=== PATIENT | female | born 2000 | race Caucasian/White ===

== ENCOUNTER 2023-12-10 16:30 | Outpatient (CLI) | payer OTHER ==
[2023-12-10] MEDS ORDERED: SYNTHROID200 MCG (17:15)
[2023-12-10] MEDS ORDERED: RINGERS SOLUTION,LACTATED 1,000 ML IV SCH (17:15)
[2023-12-10 17:34] LABS: HEMATOCRIT 33.5 % (36.0-45.00); HEMOGLOBIN 11.7 g/dL (12.0-15.00); MEAN CELL VOLUME 84.1 fL (80.00-100.00); MEAN CORPUSCULAR HEMOGLOBIN 29.4 pg (27.00-32.0); PLATELET COUNT 244 K/uL (150-450); RED BLOOD COUNT 3.98 M/uL (4.00-6.00); RED CELL DISTRIBUTION WIDTH 14.8 % (11.5-14.5)
[2023-12-10 17:35] LABS: PH,URINE 5.5 (5.0-8.0); URINE APPEARANCE Turbid; URINE BACTERIA 8565.4 uL (0.0-1933); URINE BILIRRUBIN Negative (NEGATIVE); URINE BLOOD Small; URINE COLOR Yellow; URINE LEUKOCYTE Large; URINE NITRATE Negative; URINE PROTEIN Negative (NEGATIVE); URINE UROBILINOGEN 0.2 E.U./dl; URINE WBC 1293.8 uL (0.0-23.2)
[2023-12-10 18:00] LABS: ALBUMIN 2.7 gm/dL (3.4-5.0); BILIRUBIN TOTAL 0.29 mg/dL (0.3-1.2); CALCIUM 9.4 mg/dL (8.5-10.1); CREATININE SERUM 0.56 mg/dL (0.55-1.02); GFR 131.9; GLOBULINA 3.8 G/DL (2.4-3.5); POTASSIUM 3.46 mEq/L (3.5-5.1); TOTAL PROTEIN 6.5 gm/dL (6.4-8.2)
[2023-12-10 18:02] LABS: URINE EPITHELIAL CELLS > 201.7 uL (0.0-38.8); URINE GLUCOSE 250 MG/DL (NEGATIVE); URINE RBC 0.7 uL (0.0-20.8)
[2023-12-10 18:11] LABS: URIC ACID 3.2 mg/dL (2.5-7.5)
[2023-12-11] MEDS ORDERED: LEVOTHYROXINE SODIUM 200 MCG TABLET PO SCH (06:00)
[2023-12-11 18:12] LABS: CREATININE URINE 48.6 MG/DL; URINE PROT QUANT 24HR 5.2 MG/DL
[2023-12-11 18:21] LABS: URINE PROT QUANT 24 HR 153.4 MG/24HR (42-225)
== END 2023-12-11 19:15 | disposition home or self-care (01) ==
LOC: OBS/DEL 16:30
PROVIDERS: ATTEND General Practice
DX: O16.2 Unspecified maternal hypertension, second trimester (principal); Z3A.21 21 weeks gestation of pregnancy

== ENCOUNTER 2024-01-15 17:15 | Outpatient (CLI) | payer OTHER ==
[~2024-01-15 17:15] MED LIST: SYNTHROID200 MCG
[2024-01-15] MEDS ORDERED: RINGERS SOLUTION,LACTATED 1,000 ML IV SCH (18:15)
[2024-01-15 19:04] LABS: URINE BILIRRUBIN Negative (NEGATIVE); URINE BLOOD Negative; URINE COLOR Yellow; URINE GLUCOSE Negative (NEGATIVE); URINE KETONE Negative (NEGATIVE); URINE LEUKOCYTE Trace; URINE NITRATE Negative; URINE PROTEIN Negative (NEGATIVE); URINE UROBILINOGEN 0.2 E.U./dl
[2024-01-15 19:07] LABS: URINE BACTERIA 118.4 uL (0.0-1933); URINE EPITHELIAL CELLS 3.5 uL (0.0-38.8); URINE WBC 2.9 uL (0.0-23.2)
[2024-01-15 19:09] LABS: HEMATOCRIT 32.7 % (36.0-45.00); HEMOGLOBIN 11.1 g/dL (12.0-15.00); MEAN CELL VOLUME 84.3 fL (80.00-100.00); MEAN CORPUSCULAR HEMOGLOBIN 28.6 pg (27.00-32.0); MEAN CORPUSCULAR HGB CONC 33.9 g/dl (32.0-36.0); PLATELET COUNT 233 K/uL (150-450); RED BLOOD COUNT 3.88 M/uL (4.00-6.00); RED CELL DISTRIBUTION WIDTH 16.2 % (11.5-14.5)
[2024-01-15 19:10] LABS: URINE RBC 0.9 uL (0.0-20.8)
[2024-01-15 19:11] LABS: URINE APPEARANCE CLEAR
== END 2024-01-16 13:21 | disposition home or self-care (01) ==
LOC: OBS/DEL 17:15
PROVIDERS: ATTEND General Practice
DX: O60.00 Preterm labor without delivery, unspecified trimester (principal); Z3A.26 26 weeks gestation of pregnancy

== ENCOUNTER → 2024-03-13 15:35 | Outpatient (CLI) | payer OTHER | END | disposition home or self-care (01) | LOC: PRENATAL 15:35 | PROVIDERS: ATTEND Obstetrics & Gynecology Maternal & Fetal Medicine | DX: O26.849 Uterine size-date discrepancy, unspecified trimester (principal); O36.8199 Decreased fetal movements, unspecified trimester, other fetus; O10.019 Pre-existing essential hypertension complicating pregnancy, unspecified trimester; O99.280 Endocrine, nutritional and metabolic diseases complicating pregnancy, unspecified trimester; O99.210 Obesity complicating pregnancy, unspecified trimester; Z3A.34 34 weeks gestation of pregnancy ==

== ENCOUNTER 2024-03-17 10:50 | Outpatient (CLI) | payer OTHER | END 2024-03-17 10:52 | disposition home or self-care (01) | LOC: PRENATAL 10:50 → NST 10:50 → PRENATAL 10:52 | PROVIDERS: ATTEND Obstetrics & Gynecology Maternal & Fetal Medicine | DX: Z34.83 Encounter for supervision of other normal pregnancy, third trimester (principal) ==

== ENCOUNTER 2024-03-26 13:15 | Inpatient (IN) | payer OTHER ==
[~2024-03-26] VITALS: Ht 165.1 cm; Wt 95.7 kg
[2024-03-26 13:32] LABS: HEMOGLOBIN 12.3 g/dL (12.0-15.00); MEAN CELL VOLUME 81.9 fL (80.00-100.00); MEAN CORPUSCULAR HEMOGLOBIN 28.1 pg (27.00-32.0); MEAN CORPUSCULAR HGB CONC 34.3 g/dl (32.0-36.0); PLATELET COUNT 222 K/uL (150-450); RED BLOOD COUNT 4.39 M/uL (4.00-6.00); RED CELL DISTRIBUTION WIDTH 16.3 % (11.5-14.5)
[2024-03-26 13:33] LABS: URINE APPEARANCE Clear; URINE BILIRRUBIN Negative (NEGATIVE); URINE BLOOD Negative; URINE COLOR Yellow; URINE KETONE Negative (NEGATIVE); URINE LEUKOCYTE Large; URINE NITRATE Negative; URINE PROTEIN Negative (NEGATIVE); URINE UROBILINOGEN 0.2 E.U./dl
[2024-03-26 13:34] LABS: URINE BACTERIA 2393.8 uL (0.0-1933); URINE EPITHELIAL CELLS 32.3 uL (0.0-38.8); URINE WBC 209.9 uL (0.0-23.2)
[2024-03-26 13:37] LABS: URINE GLUCOSE 250 MG/DL (NEGATIVE); URINE RBC 1.3 uL (0.0-20.8)
[2024-03-26 13:56] LABS: INR 0.94; PARTIAL THROMBOPLASTIN TIME 25.7 SECONDS (22.0-34.0); PROTHROMBIN TIME 10.3 SECONDS (9.0-11.5)
[2024-03-26 14:38] LABS: ALBUMIN 2.7 gm/dL (3.4-5.0); BILIRUBIN TOTAL 0.34 mg/dL (0.3-1.2); CALCIUM 8.8 mg/dL (8.5-10.1); CREATININE SERUM 0.62 mg/dL (0.55-1.02); GFR 117.28; GLOBULINA 3.7 G/DL (2.4-3.5); POTASSIUM 4.06 mEq/L (3.5-5.1); TOTAL PROTEIN 6.4 gm/dL (6.4-8.2)
[2024-04-06 08:44] VITALS: BP 120/71
[2024-04-06 09:23] LABS: URINE APPEARANCE Clear; URINE BILIRRUBIN Negative (NEGATIVE); URINE BLOOD Negative; URINE COLOR Yellow; URINE KETONE Trace (NEGATIVE); URINE LEUKOCYTE Large; URINE NITRATE Negative; URINE PROTEIN Negative (NEGATIVE)
[2024-04-06 09:24] LABS: HEMATOCRIT 34.8 % (36.0-45.00); HEMOGLOBIN 11.9 g/dL (12.0-15.00); MEAN CELL VOLUME 82.5 fL (80.00-100.00); MEAN CORPUSCULAR HEMOGLOBIN 28.3 pg (27.00-32.0); MEAN CORPUSCULAR HGB CONC 34.3 g/dl (32.0-36.0); PLATELET COUNT 212 K/uL (150-450); RED BLOOD COUNT 4.21 M/uL (4.00-6.00); URINE GLUCOSE 500 MG/DL (NEGATIVE)
[2024-04-06 09:27] LABS: URINE BACTERIA 5580.4 uL (0.0-1933); URINE EPITHELIAL CELLS 54.7 uL (0.0-38.8); URINE WBC 375.1 uL (0.0-23.2)
[2024-04-06 09:28] LABS: URINE RBC 1.3 uL (0.0-20.8)
[2024-04-06] MEDS ORDERED: MISOPROSTOL 50 MCG TABLET VAG ONE (09:45)
[2024-04-06 09:49] LABS: INR 0.94; PARTIAL THROMBOPLASTIN TIME 24.9 SECONDS (22.0-34.0); PROTHROMBIN TIME 10.3 SECONDS (9.0-11.5)
[2024-04-06 09:55] LABS: ALBUMIN 2.6 gm/dL (3.4-5.0); BILIRUBIN TOTAL 0.42 mg/dL (0.3-1.2); CALCIUM 8.7 mg/dL (8.5-10.1); CREATININE SERUM 0.69 mg/dL (0.55-1.02); GFR 103.66; GLOBULINA 3.5 G/DL (2.4-3.5); POTASSIUM 3.95 mEq/L (3.5-5.1); TOTAL PROTEIN 6.1 gm/dL (6.4-8.2)
[2024-04-06 11:37] VITALS: BP 108/54
[2024-04-06 15:35] VITALS: BP 117/52
[2024-04-06 16:00] VITALS: BP 140/70
[2024-04-06] MEDS ORDERED: LABETALOL HCL 100 MG TABLET PO SCH (17:00)
[2024-04-06] MEDS ORDERED: MORPHINE SULFATE 4 MG/ML VIAL IV ONE ×2 (17:30→23:30)
[2024-04-06] MEDS ORDERED: FAMOTIDINE/PF 20 MG/2 ML VIAL IV SCH (19:25)
[2024-04-06] MEDS ORDERED: ONDANSETRON HCL 2 MG/ML VIAL IV PRN (19:30)
[2024-04-06] MEDS ORDERED: VANCOMYCIN HCL 1,000 MG VIAL IV SCH (21:00)
[2024-04-06] MEDS ORDERED: OXYTOCIN 500 ML IV SCH (23:30)
[2024-04-06 23:37] VITALS: BP 130/74
[2024-04-07] VITALS (10 sets, daily range): BP systolic 105–157; BP diastolic 43–83
[2024-04-07] MEDS ORDERED: OXYTOCIN 1,000 ML IV SCH (05:15)
[2024-04-07] MEDS ORDERED: CHLORHEXIDINE GLUCONATE 120 ML BOTTLE TOP SCH (05:15)
[2024-04-07] MEDS ORDERED: FF) RHO(D) IMMUNE GLOBULIN (POM) IM NR (05:15)
[2024-04-07] MEDS ORDERED: ERYTHROMYCIN BASE OPHT 1GM EACH TUBE OP ONE (05:30)
[2024-04-07] MEDS ORDERED: LEVOTHYROXINE SODIUM 200 MCG TABLET PO SCH (06:00)
[2024-04-07] MEDS ORDERED: LEVOTHYROXINE SODIUM 175 MCG TABLET PO NR (06:40)
[2024-04-07 08:17] LABS: HEMATOCRIT 36.4 % (36.0-45.00); HEMOGLOBIN 12.5 g/dL (12.0-15.00); MEAN CELL VOLUME 81.4 fL (80.00-100.00); MEAN CORPUSCULAR HEMOGLOBIN 27.9 pg (27.00-32.0); MEAN CORPUSCULAR HGB CONC 34.2 g/dl (32.0-36.0); PLATELET COUNT 221 K/uL (150-450); RED BLOOD COUNT 4.47 M/uL (4.00-6.00); RED CELL DISTRIBUTION WIDTH 16.1 % (11.5-14.5)
[2024-04-07] MEDS ORDERED: PNV,CALCIUM 72/IRON/FOLIC ACID 1 TAB TABLET PO SCH (09:00)
[2024-04-07] MEDS ORDERED: DOCUSATE SODIUM 100MG CAP PO SCH (09:00)
[2024-04-07] MEDS ORDERED: ACETAMINOPHEN 500 MG GEL..CAP PO SCH (09:00)
[2024-04-07] MEDS ORDERED: LEVOTHYROXINE SODIUM 88 MCG TABLET PO SCH (09:00)
[2024-04-08] VITALS: BP 135/71
[2024-04-08] MEDS ORDERED: LEVOTHYROXINE SODIUM 175 MCG TABLET PO SCH (06:00)
[2024-04-08 08:37] VITALS: BP 99/62
[2024-04-08 16:10] VITALS: BP 118/73
[2024-04-09 01:28] VITALS: BP 129/85
[2024-04-09 08:55] VITALS: BP 123/88
[2024-04-09 16:15] VITALS: BP 128/75
== END 2024-04-09 17:45 | disposition home or self-care (01) | DRG 806 ==
LOC: OB/GYN 04-03 13:15 → LDR 04-06 08:23 → OB/GYN 04-07 05:31
PROVIDERS: ADMIT General Practice; ATTEND General Practice
PROC: 4A1HXCZ Monitoring of Products of Conception, Cardiac Rate, External Approach (ICD-10-PCS; 2024-04-06)
PROC: 10E0XZZ Delivery of Products of Conception, External Approach (ICD-10-PCS; principal; 2024-04-07)
PROC: 0UQMXZZ Repair Vulva, External Approach (ICD-10-PCS; 2024-04-07)
PROC: 3E033VJ Introduction of Other Hormone into Peripheral Vein, Percutaneous Approach (ICD-10-PCS; 2024-04-07)
DX: O71.82 Other specified trauma to perineum and vulva (principal); O10.92 Unspecified pre-existing hypertension complicating childbirth; Z37.0 Single live birth; O99.824 Streptococcus B carrier state complicating childbirth; Z39.2 Encounter for routine postpartum follow-up; Z3A.37 37 weeks gestation of pregnancy; Z20.822 Contact with and (suspected) exposure to COVID-19

== ENCOUNTER → 2024-03-26 14:58 | Outpatient (CLI) | payer OTHER | END | disposition home or self-care (01) | LOC: PRENATAL 14:58 | PROVIDERS: ATTEND Obstetrics & Gynecology Maternal & Fetal Medicine | DX: O36.8199 Decreased fetal movements, unspecified trimester, other fetus (principal); O10.019 Pre-existing essential hypertension complicating pregnancy, unspecified trimester; O99.280 Endocrine, nutritional and metabolic diseases complicating pregnancy, unspecified trimester ==

== ENCOUNTER → 2024-04-04 10:33 | Outpatient (CLI) | payer OTHER | END | disposition home or self-care (01) | LOC: PRENATAL 10:33 | PROVIDERS: ATTEND Obstetrics & Gynecology Maternal & Fetal Medicine | DX: O26.849 Uterine size-date discrepancy, unspecified trimester (principal); O36.8199 Decreased fetal movements, unspecified trimester, other fetus; O10.019 Pre-existing essential hypertension complicating pregnancy, unspecified trimester; Z3A.36 36 weeks gestation of pregnancy ==